=== PATIENT | female | born 1985 | race Hispanic/Latino ===

== ENCOUNTER 2017-02-24 09:49 | Emergency (ER) | payer OTHER | END 2017-02-24 10:25 | disposition home or self-care (01) | LOC: ERS 09:49 | DX: B34.9 Viral infection, unspecified (principal) | CPT/HCPCS: 99283 ==

== ENCOUNTER 2017-08-10 07:40 | Emergency (ER) | payer OTHER, SELFPAY ==
--- NOTE | 2017-08-10 08:39 | RAD ---
LEFT KNEE FOUR VIEWS: History: Sprained knee. Pain. Comparison: None. FINDINGS: NO fracture. No malalignment. Trace joint effusion. Small medial compartment osteophytes. IMPRESSION: No acute abnormality. Minimal degenerative change. POS: OFF
== END 2017-08-10 08:47 | disposition home or self-care (01) ==
LOC: ERS 07:40
DX: M25.562 Pain in left knee (principal)

== ENCOUNTER 2017-11-24 14:53 | Emergency (ER) | payer SELFPAY | END 2017-11-24 15:41 | disposition home or self-care (01) | LOC: ERS 14:53 | DX: B35.4 Tinea corporis (principal) | CPT/HCPCS: 99282 ==

== ENCOUNTER 2018-01-20 13:06 | Emergency (ER) | payer SELFPAY ==
[2018-01-20] MEDS ORDERED: Dexamethasone 4 MG TAB PO SCH (13:45)
[2018-01-20] MEDS ORDERED: Dexamethasone 10 MG/ML VIAL ONE (13:49)
== END 2018-01-20 13:52 | disposition home or self-care (01) ==
LOC: ERS 13:06
DX: L30.9 Dermatitis, unspecified (principal)
CPT/HCPCS: 99282; J1100; J8540

== ENCOUNTER 2020-01-26 22:57 | Emergency (ER) | payer SELFPAY | END 2020-01-26 23:46 | disposition home or self-care (01) | LOC: ERS 22:57 | DX: M79.632 Pain in left forearm (principal) | CPT/HCPCS: 99283 ==

== ENCOUNTER 2020-07-19 18:08 | Emergency (ER) | payer SELFPAY ==
[2020-07-19 18:38] LABS: #Eosinphils 0.1 thou/uL (0.0-0.7); #Lymphocytes 2.5 thou/uL (1.20-3.40); #Monocytes 0.5 thou/uL (0.11-0.59); #Neutrophils 2.2 thou/uL (1.40-6.50); %Basophils 0.4 % (0.0-1.0); %Eosinophils 1.3 % (0.0-10.0); %Lymphocytes 47.6 % (21.0-51.0); %Monocytes 9.6 % (0.0-10.0); %Neutrophils 41.1 % (42.0-75.0); Hemoglobin 13.3 g/dL (12.0-16.0); Mean Corpuscular HGB CONC 33.9 g/dL (32.0-36.0); Mean Corpuscular Hemoglobin 31.2 pg (27.0-31.0); Mean Corpuscular Volume 91.9 fL (78.0-98.0); Mean Platelet Volume 8.9 fL (7.4-10.4); Platelet Count 270 thou/uL (130-400); RBC Distribution Width 12.3 % (11.5-14.5); Red Blood Cell (RBC) Count 4.26 mill/uL (4.20-5.40); White Blood Cell (WBC) Count 5.3 thou/uL (4.8-10.8)
[2020-07-19 19:00] LABS: ALT (SGPT) 23 U/L (8-55); AST (SGOT) 25 U/L (5-34); Albumin 3.9 g/dL (3.5-5.0); Alkaline Phosphatase 61 U/L (40-110); Anion Gap 13 mmol/L (10-20); BUN (Urea Nitrogen) 8 mg/dL (7.0-18.7); Bilirubin, Total 0.2 mg/dL (0.2-1.2); Calc. Creatinine Clearance 0 mL/min (70-130); Calcium 8.4 mg/dL (7.8-10.44); Carbon Dioxide 26 mmol/L (22-29); Chloride 108 mmol/L (98-107); Globulin 3.3 g/dL (2.4-3.5); Glucose 96 mg/dL (70-105); Potassium 3.5 mmol/L (3.5-5.1); Protein, Total 7.2 g/dL (6.0-8.3); Sodium 143 mmol/L (136-145)
[2020-07-19] MEDS ORDERED: Ketorolac Tromethamine 30 MG/ML VIAL ONE (19:21)
== END 2020-07-19 19:46 | disposition home or self-care (01) ==
LOC: ERS 18:08
DX: J20.9 Acute bronchitis, unspecified (principal); R07.89 Other chest pain
CPT/HCPCS: 71045; 80053; 84484; 85025; 93005; 96374; J1885

== ENCOUNTER 2020-08-17 14:30 | Emergency (ER) | payer SELFPAY | END 2020-08-17 15:50 | disposition home or self-care (01) | LOC: ERS 14:30 | DX: K03.81 Cracked tooth (principal); K02.9 Dental caries, unspecified | CPT/HCPCS: 99283 ==

== ENCOUNTER 2020-09-20 23:37 | Emergency (ER) | payer SELFPAY ==
[2020-09-21] MEDS ORDERED: diphenhydrAMINE 25 MG CAP ONE (02:47)
== END 2020-09-21 03:05 | disposition home or self-care (01) ==
LOC: ERS 23:37
DX: L25.9 Unspecified contact dermatitis, unspecified cause (principal)
CPT/HCPCS: 99282; Q0163

== ENCOUNTER 2021-02-06 19:39 | Emergency (ER) | payer SELFPAY ==
[2021-02-06 20:10] LABS: Bacteria/HPF 1+ HPF (None Seen); Bilirubin Negative (Negative); Blood, Urine 1+ (Negative); Clarity Clear (Clear); Glucose, Urine (Dipstick) Normal (Negative); Ketone, Urine Negative (Negative); Leukocyte 75 Leu/uL (Negative); Nitrite Negative (Negative); Protein, Urine (Dipstick) Negative (Neg-Trace); Specific Gravity, Urine 1.024 (1.002-1.036); Urobilinogen Normal mg/dL (Less than 2); pH, Urine 5.5 (5.0-9.0)
== END 2021-02-06 20:36 | disposition home or self-care (01) ==
LOC: ERS 19:39
DX: N39.0 Urinary tract infection, site not specified (principal)
CPT/HCPCS: 81003; 81015; 87077; 87086

== ENCOUNTER 2021-05-02 09:28 | Emergency (ER) | payer SELFPAY | END 2021-05-02 10:04 | disposition home or self-care (01) | LOC: ERS 09:28 | DX: J30.9 Allergic rhinitis, unspecified (principal) | CPT/HCPCS: 99283 ==

== ENCOUNTER 2022-03-24 14:17 | Emergency (ER) | payer MEDICAID, SELFPAY | END 2022-03-24 14:57 | disposition home or self-care (01) | LOC: ERS 14:17 | DX: A60.00 Herpesviral infection of urogenital system, unspecified (principal) | CPT/HCPCS: 99283 ==

== ENCOUNTER 2022-11-18 14:09 | Emergency (ER) | payer MEDICAID, SELFPAY | END 2022-11-18 15:20 | disposition home or self-care (01) | LOC: ERS 14:09 | DX: L29.0 Pruritus ani (principal); B00.9 Herpesviral infection, unspecified | CPT/HCPCS: 99282 ==